=== PATIENT | female | born 1985 | race Caucasian/White ===

== ENCOUNTER 2017-06-11 19:59 | Outpatient (CLI) | payer MEDICAID ==
[~2017-06-11] VITALS: Ht 152.4 cm; Wt 80.6 kg
[2017-06-11 20:52] VITALS: BP 118/73; PULSE 83; RESP 18; Ht 152.4 cm; Wt 80.6 kg
[2017-06-11] MEDS ORDERED: PREN-93 PO (20:56)
--- NOTE | 2017-06-12 00:31 | PN ---
Triage Information Date/Time May Reason for visit: Uterine contractions Weeks of Gestation 39w 3d /Para 1/0 Diabetes: none Hypertention: none Additional information Pt denies any bleeding or leaking and reports that the baby is moving normally. PMHx: none. PSHx: none. NKDA. Objective Vital Signs Date Time Temp Pulse Resp B/P Pulse Ox O2 Delivery O2 Flow Rate FiO2 06/11/17 20:52 98.3 83 18 118/73 Room Air Heart Rate: 150's Heart Rate Comments Accels to 170 bpm. Contractions: 6-10 Minutes Apart Exam 0/0/-3 Disposition: Discharge Assessment/Plan A: IUP at 39w 3d. False labor. P: D/C home. Reviewed labor precautions with pt. DONALDO OLSEN MD Jun 12, 2017 00:31
--- NOTE | 2017-06-12 03:22 | TRIAGE ---
OB Triage Datetime Report Generated by CPN: 06/12/2017 03:22 Datetime: 06/12/2017 00:40 Assessment Type: Triage Datetime: 06/12/2017 00:00 Labor Evaluation Frequency: 2-7 Monitor Mode: External Duration (sec)2399: 50-120 Quality: Mild Pattern: Normal: <= 5 Contractions in 10 Minutes Resting Tone [place]: Relaxed Contraction Comments: COUPLING NOTED, SOME LOSS OF CONTACT NOTED Monitor Mode: External US Variability: Moderate 6-25 bpm Accelerations: 15X15 Decelerations: None Category: Category I Datetime: 06/11/2017 23:34 Vaginal Exam Dilatation (cms): 0.5 Effacement (%): 50 Station: -3 Exam By: Kade GLORIA RN Datetime: 06/11/2017 23:31 Temperature Route: Oral Pain Assessment Pain Scale: 4 Pain Presence: Intermittent Pain Type: Contraction Pain Location: Abdomen Pain Goal: 6 Pain Relief Measures: Comfort Measures Datetime: 06/11/2017 22:14 Vaginal Exam Dilatation (cms): 0.5 Effacement (%): 50 Station: -3 Exam By: Kade GLORIA RN Datetime: 06/11/2017 21:45 Labor Evaluation Frequency: 2-9 Monitor Mode: External Duration (sec)2399: 50-80 Quality: Mild Pattern: Normal: <= 5 Contractions in 10 Minutes Resting Tone [place]: Relaxed Heart Rate FHR Baseline Rate: 150 Monitor Mode: External US Variability: Moderate 6-25 bpm Accelerations: 15X15 Decelerations: None Category: Category I Datetime: 06/11/2017 21:07 Vaginal Exam Dilatation (cms): 0.0 Effacement (%): 0 Station: -3 Exam By: Emmett BEDOLLA RN Vaginal Bleeding: Scant Cervix, Consistency: Firm Cervix, Position: Posterior Datetime: 06/11/2017 20:21 Stage of : OB Triage Maternal Assessment Level of Consciousness: Fully Conscious DTR's/Clonus: DTRs 2+; No Clonus Headache: Denies Blurred Vision: No Respiratory Effort: Unlabored; Regular Rhythm; Equal Expansion Breath Sounds, Left: Clear and Equal Breath Sounds, Right: Clear and Equal Nausea/Vomiting: Denies RUQ Epigastric Pain: Denies Lower Extremities Edema: None Degree: None Upper Extremities Edema: None Degree: None Facial Edema: None Temperature Route: Oral Fall Risk Assessment History of Falling: (0) No Secondary Diagnosis: (0) No Ambulatory Aid: (0) Bedrest/Nurse Assist IV Therapy: (0) No Gait: (0) Normal/Bedrest/Immobile Mental Status: (0) Oriented to Own Ability Fall Score: 0 Fall Risk Score Definition: No Risk: No action required Pain Assessment Pain Scale: 5 Pain Presence: Intermittent Pain Type: Contraction Pain Location: Abdomen Pain Goal: 6 Pain Relief Measures: Comfort Measures Datetime: 06/11/2017 20:18 EGA: 39.2 Datetime: 06/11/2017 20:16 Time of Arrival: 06/11/2017 19:51 Arrived By: Ambulatory Arrived From: Home Chief Complaint: UC'S Movement: Present Contractions: Regular Rupture of Membranes: Denies Vaginal Bleeding: None Vaginal Discharge: Denies Recent Sexual Intercouse: Denies Abdominal Trauma: Not Applicable Patient Complaints: Contractions Provider Notified: [id number] Initial Plan: MONITORING, SVE
--- NOTE | 2017-06-12 08:20 | TRIAGE ---
OB Triage Datetime Report Generated by CPN: 06/12/2017 08:20 Datetime: 06/11/2017 21:00 Frequency: 10 Monitor Mode: External Duration (sec)2399: 180 Quality: Mild Pattern: Normal: <= 5 Contractions in 10 Minutes Resting Tone [place]: Relaxed FHR Baseline Rate: 155 Monitor Mode: External US FHR Baseline Changes: No Baseline Change Variability: Moderate 6-25 bpm Accelerations: 15X15 Decelerations: None Category: Category I Datetime: 06/11/2017 20:21 Fall Score: 0 Fall Risk Score Definition: No Risk: No action required Datetime: 06/11/2017 20:18 EGA: 39.2 Datetime: 06/11/2017 20:16 Time Provider Notified: 06/11/2017 20:15 Provider Notified: DR REICHE Datetime: 06/11/2017 20:00 Stage of : OB Triage Level of Consciousness: Fully Conscious DTR's/Clonus: DTRs 2+; No Clonus Headache: Denies Blurred Vision: No Respiratory Effort: Unlabored; Regular Rhythm; Equal Expansion Breath Sounds, Left: Clear and Equal Breath Sounds, Right: Clear and Equal Nausea/Vomiting: Denies RUQ Epigastric Pain: Denies Lower Extremities Edema: None Degree: None Upper Extremities Edema: None Degree: None Facial Edema: None Temperature Route: Oral History of Falling: (0) No Secondary Diagnosis: (0) No Ambulatory Aid: (0) Bedrest/Nurse Assist IV Therapy: (0) No Gait: (0) Normal/Bedrest/Immobile Mental Status: (0) Oriented to Own Ability Fall Score: 0 Fall Risk Score Definition: No Risk: No action required Monitor Mode: External Monitor Mode: External US Pain Scale: 5 Pain Presence: Intermittent Pain Type: Contraction Pain Location: Abdomen; Back
== END 2017-06-12 00:40 | disposition home or self-care (01) ==
LOC: OBT 19:59 → L-D 20:01 → OBT 06-12 00:40 → EDSTATUS 06-16 13:19
PROVIDERS: ATTEND Obstetrics & Gynecology
DX: O62.9 Abnormality of forces of labor, unspecified (principal); Z3A.39 39 weeks gestation of pregnancy
CPT/HCPCS: G0463

== ENCOUNTER 2017-06-14 08:10 | Inpatient (IN) | payer MEDICAID ==
[~2017-06-14] VITALS: Ht 152.4 cm; Wt 80.1 kg
[~2017-06-14 08:10] MED LIST: PREN-93 PO
[2017-06-14 08:36] VITALS: BP 112/64; PULSE 76
[2017-06-14] MEDS ORDERED: OXYTOCIN 30 UNITS/LR 500 ML IV PRN ×3 (09:00→20:30)
[2017-06-14] MEDS ORDERED: OXYTOCIN 30 UNITS/LR 500 ML IV SCH ×3 (09:00)
[2017-06-14] MEDS ORDERED: BUTORPHANOL 2 MG INJ IV PRN ×2 (09:00)
[2017-06-14] MEDS ORDERED: CARBOPROST 250 MCG INJ IM PRN ×3 (09:00→20:30)
[2017-06-14] MEDS ORDERED: LACTATED RINGER'S 1,000 ML IV PRN (09:00)
[2017-06-14] MEDS ORDERED: LIDOCAINE 1% (MPF) 30 ML INJ INJ PRN (09:00)
[2017-06-14] MEDS ORDERED: MISOPROSTOL 200 MCG TAB PR PRN ×3 (09:00→20:30)
[2017-06-14] MEDS ORDERED: METHYLERGONOVINE 0.2 MG INJ IM PRN ×3 (09:00→20:30)
[2017-06-14] MEDS: LACTATED RINGER'S 1,000 ML IV SCH ×2 (10:12→19:23)
[2017-06-14] MEDS ORDERED: AMPICILLIN 2 GM/NS (PMX) 100 ML IV ONE (10:30)
[2017-06-14 10:38] LABS: BASOPHILS % 0.4 % (0.0-2.0); EOSINOPHILS # 0.1 10^3/ul (0.0-0.5); EOSINOPHILS % 0.7 % (0.0-7.0); HEMATOCRIT 36.4 % (37.0-47.0); HEMOGLOBIN 11.6 g/dl (12.0-16.0); LYMPHOCYTES # 2.4 10^3/ul (0.8-2.9); LYMPHOCYTES % 22.9 % (15.0-51.0); MEAN CORPUSCULAR HEMOGLOBIN 23.8 pg (29.0-33.0); MEAN CORPUSCULAR HGB CONC 31.9 g/dl (32.0-37.0); MEAN CORPUSCULAR VOLUME 74.6 fl (82.0-101.0); MEAN PLATELET VOLUME 12.8 fl (7.4-10.4); MONOCYTE # 0.7 10^3/ul (0.3-0.9); NEUTROPHILS % 68.2 % (39.0-77.0); PLATELET COUNT 182 10^3/UL (140-415); RED BLOOD COUNT 4.88 10^6/ul (4.20-5.40); RED CELL DISTRIBUTION WIDTH 15.4 % (11.5-14.5); WHITE BLOOD COUNT 10.5 10^3/ul (4.8-10.8)
[2017-06-14 11:03] LABS: INR 0.93; PARTIAL THROMBOPLASTIN TIME 25.9 Sec (25.0-35.0); PROTIME 12.5 Sec (12.2-14.2)
--- NOTE | 2017-06-14 11:30 | RADRPT ---
PROCEDURE: US OB. CLINICAL INDICATION: Size and dates , labor pain TECHNIQUE: Multiple sonographic images of the pelvis and gravid uterus were obtained. The images were reviewed on a PACS workstation. COMPARISON: No prior studies are available for comparison. FINDINGS: There is a single viable intrauterine gestation. Cardiac activity is present with 144 beats per min [place]. There is a vertex presentation. The placenta is posterior. There is no evidence for an abruption or placenta previa. Measurements were made in order to determine age. The results are as follows: BPD =9.4 cm HC =33.8 cm AC =35.1 cm FL =6.9 cm Estimated gestational age of approximately 37 weeks and 6 days based on ultrasound measurements. Clinical age: 39 weeks and 5 days. The estimated date of delivery is 06/29/17, based on ultrasound measurements. The EFW = 3388 g, 34.5%, based on LMP age. RPTAT: AA IMPRESSION: Single viable intrauterine gestation of approximately 37 weeks and 6 days based on ultrasound measu rements. .Gonzalo Lane MD, Date Time Electronically viewed and signed by .Gonzalo Lane MD, MD on 06/14/2017 11:29 .S/
[2017-06-14] MEDS: AMPICILLIN 1 GM/NS (PMX) 50 ML IV SCH ×2 (14:26→18:33)
[2017-06-14] MEDS ORDERED: MINERAL OIL LIGHT 10 ML VIAL TOP ONE (19:30)
[2017-06-14] MEDS ORDERED: LACTATED RINGER'S 1,000 ML IV* SCH (20:09)
--- NOTE | 2017-06-14 20:09 | LDN ---
Date/Time of Note Date/Time of Note DATE: 06/14/17 TIME: 20:07 Delivery Summary Weeks of Gestation 39 Placenta Delivered: Spontaneously Meconium: none Episiotomy: Yes Laceration repair: rmle repair with 2-0 and 3-0 chromic Anesthesia type: Local Estimated blood loss: 250 Sponge & Needle done & correct: Yes All needle counts correct: Yes Any foreign bodies felt in the: No Problems: Infant Delivery Information Sex Sex: female Apgars 1 Minute: 9 5 Minute: 9 Suctioning Nose & mouth suctioned at [place]: No Delee suction performed: No Umbilical Cord Umbilical cord with: 3 Vessels Cord presentations: no nuchal cord Cord Blood was obtained: Yes MIMI VIEYRA MD Jun 14, 2017 20:09
[2017-06-14] MEDS ORDERED: ONDANSETRON 4 MG INJ IV PRN (20:30)
[2017-06-14] MEDS ORDERED: LANOLIN 7 GM TUBE TOP PRN (20:30)
[2017-06-14] MEDS ORDERED: BENZOCAINE 20% 56 ML SPRAY TOP PRN (20:30)
[2017-06-14] MEDS ORDERED: DIBUCAINE 1% 30 GM OINT PR PRN (20:30)
[2017-06-14] MEDS ORDERED: DIPHENHYDRAMINE 25 MG CAP PO PRN (20:30)
[2017-06-14] MEDS ORDERED: WITCH HAZEL/GLYCERIN PAD PR PRN (20:30)
[2017-06-14] MEDS ORDERED: OXYCODONE/ASPIRIN (4.88/325) TAB PO PRN (20:30)
[2017-06-14] MEDS ORDERED: SENNA/DOCUSATE NA (8.6MG/50MG) TAB PO PRN (20:30)
[2017-06-14] MEDS ORDERED: IBUPROFEN 600 MG TAB PO ONE (21:30)
[2017-06-14 22:35] VITALS: BP 110/52; PULSE 77; RESP 18
[2017-06-14] MEDS: IBUPROFEN 600 MG TAB PO SCH (23:49)
[2017-06-14] MEDS: MAGNESIUM HYDROXIDE 30ML CUP PO SCH (23:54)
[2017-06-14] MEDS: SENNA/DOCUSATE NA (8.6MG/50MG) TAB PO SCH (23:54)
[2017-06-15] MEDS: LACTATED RINGER'S 1,000 ML IV* SCH ×4 (00:46→20:09)
[2017-06-15 04:00] VITALS: BP 97/55; PULSE 78; RESP 18
[2017-06-15] MEDS: IBUPROFEN 600 MG TAB PO SCH ×4 (05:41→23:44)
[2017-06-15 08:30] VITALS: BP 92/56; PULSE 81; RESP 18
[2017-06-15] MEDS: SENNA/DOCUSATE NA (8.6MG/50MG) TAB PO SCH ×2 (09:54→22:40)
[2017-06-15] MEDS: MAGNESIUM HYDROXIDE 30ML CUP PO SCH ×2 (09:54→22:40)
[2017-06-15 10:13] LABS: BASOPHILS % 0.2 % (0.0-2.0); EOSINOPHILS % 0.2 % (0.0-7.0); HEMOGLOBIN 10.1 g/dl (12.0-16.0); LYMPHOCYTES # 2.7 10^3/ul (0.8-2.9); LYMPHOCYTES % 15.9 % (15.0-51.0); MEAN CORPUSCULAR HGB CONC 31.6 g/dl (32.0-37.0); MEAN CORPUSCULAR VOLUME 76.2 fl (82.0-101.0); MEAN PLATELET VOLUME 12.8 fl (7.4-10.4); MONOCYTE # 1.5 10^3/ul (0.3-0.9); MONOCYTES % 8.8 % (0.0-11.0); NEUTROPHILS % 74.4 % (39.0-77.0); PLATELET COUNT 170 10^3/UL (140-415); RED CELL DISTRIBUTION WIDTH 15.5 % (11.5-14.5); WHITE BLOOD COUNT 16.8 10^3/ul (4.8-10.8)
--- NOTE | 2017-06-15 15:09 | QN ---
Documentation Comment ppd 1 patient seen and evaluated no complaints vs stable afebrile ab soft nt uterine fundus below umbillicus extremity no edema no calf tenderness a/ s/p vaginal delivery ppd 1 doing well p/ repeat cbc in am MIMI VIEYRA MD Jun 15, 2017 15:09
[2017-06-15 16:00] VITALS: BP 97/55; PULSE 59; RESP 18
[2017-06-15 20:00] VITALS: BP 106/57; PULSE 86; RESP 20
[2017-06-16 04:00] VITALS: BP 93/52; PULSE 68; RESP 19
[2017-06-16] MEDS: LACTATED RINGER'S 1,000 ML IV* SCH ×3 (04:09→19:50)
[2017-06-16] MEDS: IBUPROFEN 600 MG TAB PO SCH ×3 (06:11→17:52)
[2017-06-16 08:31] VITALS: BP 117/68; PULSE 82; RESP 18
[2017-06-16] MEDS: OXYCODONE/ASPIRIN (4.88/325) TAB PO PRN ×2 (08:38→15:23)
[2017-06-16] MEDS: SENNA/DOCUSATE NA (8.6MG/50MG) TAB PO SCH ×2 (08:39→21:20)
[2017-06-16] MEDS: MAGNESIUM HYDROXIDE 30ML CUP PO SCH ×2 (08:39→21:20)
[2017-06-16 09:06] LABS: BASOPHIL # 0.1 10^3/ul (0.0-0.1); BASOPHILS % 0.4 % (0.0-2.0); EOSINOPHILS # 0.1 10^3/ul (0.0-0.5); EOSINOPHILS % 0.9 % (0.0-7.0); HEMATOCRIT 32.6 % (37.0-47.0); HEMOGLOBIN 10.3 g/dl (12.0-16.0); LYMPHOCYTES # 2.8 10^3/ul (0.8-2.9); LYMPHOCYTES % 21.2 % (15.0-51.0); MEAN CORPUSCULAR HEMOGLOBIN 24.6 pg (29.0-33.0); MEAN CORPUSCULAR HGB CONC 31.6 g/dl (32.0-37.0); MEAN PLATELET VOLUME 11.7 fl (7.4-10.4); MONOCYTE # 0.9 10^3/ul (0.3-0.9); MONOCYTES % 6.6 % (0.0-11.0); PLATELET COUNT 167 10^3/UL (140-415); RED BLOOD COUNT 4.18 10^6/ul (4.20-5.40); RED CELL DISTRIBUTION WIDTH 15.6 % (11.5-14.5)
[2017-06-16 16:00] VITALS: BP 110/69; PULSE 75; RESP 18
[2017-06-16 20:00] VITALS: BP 107/72; PULSE 79; RESP 18
--- NOTE | 2017-06-16 23:14 | PD.PPDC ---
[employer] Discharge Instruction Condition Patient Condition: Good Diet Diet: Resume Regular Diet Activity/Restrictions Restrictions: No Exercising No Lifting No Driving No Sexual Activity Nothing in the Vagina No [place] No Tampons, douche Wound/Drain Care Instructions Wound/Drain Care Instructions: Wash with soap and water Keep clean and dry Follow-up Follow-up with Physician: 3, Week/Weeks Return to clinic for [employer] Instructions: Fever greater than 101 Chills Worsening abdominal pain Excessive Vaginal Bleeding More than 2 pads per hour Unable to tolerate diet OB Instructions: Breast Tenderness Depression Blurried Vision Headache Surgical Instructions: Incisional Drainage Incisional Redness MIMI VIEYRA MD Jun 16, 2017 23:14
--- NOTE | 2017-06-16 23:16 | DS ---
Date/Time of Note Date/Time of Note DATE: 06/16/17 TIME: 23:15 Obstetrical Discharge Record Final Diagnosis Final Diagnosis: Term delivered Other Final Diagnosis 39 Vaginal Delivery Obstetrical Delivery: Spontaneous, Episiotomy, Repaired Complications Augmentation: No Induction: No Condition on Discharge Physical Assessment Voiding: Yes Bowel Movement: Yes Breast: Soft, non-tender, Filling Fundus: Firm Calf Tenderness: No Patient Condition: Fair MIMI VIEYRA MD Jun 16, 2017 23:16
== END 2017-06-16 23:51 | disposition home or self-care (01) | DRG 775 ==
LOC: L-D 08:10 → OBT 08:10 → L-D 08:45 → PP1 22:36
PROVIDERS: ADMIT Obstetrics & Gynecology; ATTEND Obstetrics & Gynecology
PROC: 10E0XZZ Delivery of Products of Conception, External Approach (ICD-10-PCS; principal; 2017-06-14)
PROC: 0UQMXZZ Repair Vulva, External Approach (ICD-10-PCS; 2017-06-14)
PROC: 0W8NXZZ Division of Female Perineum, External Approach (ICD-10-PCS; 2017-06-14)
PROC: 3E033VJ Introduction of Other Hormone into Peripheral Vein, Percutaneous Approach (ICD-10-PCS; 2017-06-14)
DX: O71.89 Other specified obstetric trauma (principal); Z37.0 Single live birth; Z3A.39 39 weeks gestation of pregnancy
CPT/HCPCS: 76815; 85025; 85610; 85730; 86592; 86703; 86850; 86900; 86901; 86920; 87340; G0463; J0290; J0595; J2590; J7120